=== PATIENT | male | born 1960 | race Caucasian/White ===

== ENCOUNTER 2019-02-10 09:21 | Emergency (ER) | payer OTHER ==
[~2019-02-10] VITALS: Ht 172.7 cm; Wt 77.1 kg
[~2019-02-10 09:21] MED LIST: HYDACE5; HYDACE5 PO; LANS15EC; LEVFLO500; OXYACE5T PO; PROM25 PO; QUET25; TAMS.4ER PO
[2019-02-10] MEDS ORDERED: Percocet 5-3251 EACH PO (11:48)
[2019-02-10] MEDS ORDERED: CEPH500 PO (11:48)
== END 2019-02-10 12:34 | disposition home or self-care (01) ==
LOC: ER 09:21
DX: S61.313A Laceration without foreign body of left middle finger with damage to nail, initial encounter (principal); S61.315A Laceration without foreign body of left ring finger with damage to nail, initial encounter; S61.211A Laceration without foreign body of left index finger without damage to nail, initial encounter; X58.XXXA Exposure to other specified factors, initial encounter
CPT/HCPCS: 11740; 12031; 73130; 90471; 90714; 96365-59; 96375-59; 99283-25; C2627; J0690; J1170; J2405

== ENCOUNTER 2019-02-13 11:11 | Day surgery (SDC) | payer OTHER ==
[~2019-02-13 11:11] MED LIST changes: +CEPH500 PO; +Percocet 5-3251 EACH PO
--- NOTE | 2019-02-13 12:24 | NUR ---
History, Chart, Medications and Allergies reviewed before start of procedure. Patient confirms NPO status and agrees with scheduled surgery. Patient States Post-Procedure ride home has been arranged with his .
--- NOTE | 2019-02-13 12:25 | NUR ---
Patient states he was not instructed to do chlorhexidine showers at homes.
[2019-02-13] MEDS ORDERED: CEPH500 PO (12:35)
[2019-02-13] MEDS ORDERED: [UNRECOGNIZED DRUG - REMARK] PO (12:36)
--- NOTE | 2019-02-13 17:17 | NUR ---
Patient up to Ambulate independently. Gait steady. Discharge instructions reviewed with patient. Patient verbalizes understanding. Copy given to patient to take home. Patient States Post-Procedure ride home has been arranged. Discharged via wheelchair to private car for ride home.
== END 2019-02-13 22:37 | disposition home or self-care (01) ==
LOC: ORSCMMR 11:11
PROVIDERS: Orthopaedic Surgery
PROC: 0LQ80ZZ Repair Left Hand Tendon, Open Approach (ICD-10-PCS; principal; 2019-02-13 13:00)
PROC: 0HQGXZZ Repair Left Hand Skin, External Approach (ICD-10-PCS; principal; 2019-02-13 13:00)
PROC: 0RSX0ZZ Reposition Left Finger Phalangeal Joint, Open Approach (ICD-10-PCS; principal; 2019-02-13 13:00)
PROC: 0PBV0ZZ Excision of Left Finger Phalanx, Open Approach (ICD-10-PCS; principal; 2019-02-13 13:00)
DX: S62.633B Displaced fracture of distal phalanx of left middle finger, initial encounter for open fracture (principal); S66.32 Laceration of extensor muscle, fascia and tendon of other and unspecified finger at wrist and hand level; S61.215A Laceration without foreign body of left ring finger without damage to nail, initial encounter; S61.313A Laceration without foreign body of left middle finger with damage to nail, initial encounter; S61.211A Laceration without foreign body of left index finger without damage to nail, initial encounter; W28.XXXA Contact with powered lawn mower, initial encounter; G47.33 Obstructive sleep apnea (adult) (pediatric)
CPT/HCPCS: J0690; J1100; J2250; J2405; J2704; J3010; J7120